=== PATIENT | male | born 1975 | race Caucasian/White ===

== ENCOUNTER 2016-06-02 20:39 | Emergency (ER) | payer SELFPAY ==
[~2016-06-02] VITALS: Ht 177.8 cm; Wt 81.6 kg
[2016-06-02 20:40] VITALS: BP_SYST 149
[2016-06-02] MEDS ORDERED: IBUPROFEN 800 MG TABLET PO ONE (21:15)
[2016-06-02 21:38] VITALS: BP_SYST 132
== END 2016-06-02 21:38 ==
LOC: SED 20:39
DX: S62.396A Other fracture of fifth metacarpal bone, right hand, initial encounter for closed fracture (principal); W22.01XA Walked into wall, initial encounter; Y93.89 Activity, other specified; Y99.8 Other external cause status; Y92.89 Other specified places as the place of occurrence of the external cause
CPT/HCPCS: 99284